=== PATIENT | female | born 1930 | race Caucasian/White ===

== ENCOUNTER 2019-09-15 16:08 | Inpatient (IN) ==
[2019-09-15 19:16] LABS: Basophils # 0.1 10*3/uL (0.0-0.2); Basophils % 0.5 % (0.0-0.8); Eosinophils # 0.3 10*3/uL (0.0-0.87); Hemoglobin 9.7 GM/DL (12.0-16.0); Immature Granulocytes % 0.5 %; Immature Granulocytes Absolute 0.05 #; Lymphocytes # 1.6 10*3/uL (1.4-4.0); Lymphocytes % 14.8 % (21.3-54.2); Mean Corpuscular HGB Conc 30.3 GM/DL (32-36); Mean Corpuscular Volume 87.2 FL (87-102); Mean Platelet Volume 9.8 FL (9.6-12.0); Monocytes % 6.2 % (1.7-12.7); Platelet Count 317 T/CUMM (130-400); Red Blood Count 3.67 MC/CUMM (3.8-5.5); Red Cell Distribution Width 15.8 % (9.3-17.3); White Blood Count 10.6 T/CUMM (4-12)
[2019-09-15] MEDS ORDERED: DEXTROSE 50% 25 GM/50 ML VIAL IV PRN (19:19)
[2019-09-15] MEDS ORDERED: GLUCAGON 1 MG VIAL IM PRN ×2 (19:19→19:20)
[2019-09-15] MEDS ORDERED: DEXTROSE 10% 250 ML BAG IV PRN (19:20)
[2019-09-15] MEDS ORDERED: HYDROmorphone 2 MG/1 ML VIAL IV PRN (19:35)
[2019-09-15 19:42] LABS: Albumin 2.6 G/DL (3.4-5.0); Bilirubin,Total 1.4 MG/DL (0.2-1.0); Calcium 9.1 MG/DL (8.5-10.1); Osmolality,Calculated 281.2 MOS/KG (273-304); Total Protein 7.5 G/DL (6.4-8.3)
[2019-09-15] MEDS: INSULIN REGULAR 100 UNIT/ML SUBCUT SCH (20:31)
[2019-09-15] MEDS: PREGABALIN 75 MG CAPSULE PO SCH (20:45)
[2019-09-15] MEDS: SIMVASTATIN 20 MG TABLET PO SCH (20:45)
[2019-09-15] MEDS: rOPINIRole 1 MG TABLET PO SCH (20:45)
[2019-09-15] MEDS: DULoxetine 30 MG CAPSULE PO SCH (20:45)
[2019-09-16] MEDS ORDERED: fentaNYL 100 MCG/2 ML VIAL ONE (06:51)
[2019-09-16] MEDS ORDERED: LIDOCAINE 2% 5 ML VIAL ONE ×2 (06:51→10:59)
[2019-09-16] MEDS ORDERED: DEXAMETHASONE 4 MG/1 ML VIAL ONE ×2 (06:51→10:59)
[2019-09-16] MEDS ORDERED: BUPIVACAINE MPF 0.5% /EPI 30 ML VIAL ONE (06:51)
[2019-09-16 06:54] LABS: Basophils # 0.1 10*3/uL (0.0-0.2); Basophils % 0.5 % (0.0-0.8); Eosinophils # 0.1 10*3/uL (0.0-0.87); Eosinophils % 0.6 % (0.00-10.9); Hematocrit 30.3 VOL% (35.7-47.0); Hemoglobin 9.4 GM/DL (12.0-16.0); Immature Granulocytes % 0.7 %; Immature Granulocytes Absolute 0.09 #; Lymphocytes # 1.4 10*3/uL (1.4-4.0); Lymphocytes % 10.9 % (21.3-54.2); Mean Corpuscular Volume 85.8 FL (87-102); Mean Platelet Volume 9.4 FL (9.6-12.0); Monocytes % 5.3 % (1.7-12.7); NRBC # 0.03 10*3/uL; Platelet Count 344 T/CUMM (130-400); Red Blood Count 3.53 MC/CUMM (3.8-5.5); Red Cell Distribution Width 16.1 % (9.3-17.3); White Blood Count 12.5 T/CUMM (4-12)
[2019-09-16 07:08] LABS: Calcium 8.5 MG/DL (8.5-10.1); Osmolality,Calculated 283.7 MOS/KG (273-304)
[2019-09-16] MEDS ORDERED: ceFAZolin 1,000 MG in SYRINGE 1 EACH IV ONE (07:14)
[2019-09-16] MEDS: INSULIN REGULAR 100 UNIT/ML SUBCUT SCH ×4 (07:51→21:48)
[2019-09-16] MEDS: carvediloL 3.125 MG TABLET PO SCH (08:28)
[2019-09-16] MEDS: hydroCHLOROthiazide 12.5 MG CAPSULE PO SCH (08:29)
[2019-09-16] MEDS: LOSARTAN 50 MG TABLET PO SCH (08:29)
[2019-09-16] MEDS ORDERED: LACTATED RINGERS 1,000 ML IV SCH (09:00)
[2019-09-16] MEDS ORDERED: CALCIUM CHLORIDE 1,000 MG/10 ML VIAL IV ONE (09:52)
[2019-09-16] MEDS ORDERED: ALBUMIN 5% 12.5 GM/250 ML VIAL IV ONE (09:53)
[2019-09-16] MEDS ORDERED: FUROSEMIDE 20 MG/2 ML VIAL ONE (09:53)
[2019-09-16] MEDS ORDERED: LACTULOSE 20 GM/30 ML UDCUP PO PRN (10:33)
[2019-09-16] MEDS ORDERED: ONDANSETRON 4 MG/2 ML VIAL IV PRN (10:33)
[2019-09-16] MEDS ORDERED: ACETAMINOPHEN 325 MG TABLET PO PRN (10:33)
[2019-09-16] MEDS ORDERED: diphenhydrAMINE CAP 25 MG CAPSULE PO PRN (10:33)
[2019-09-16] MEDS ORDERED: MORPHINE 4 MG/1 ML VIAL IV PRN ×2 (10:33→10:47)
[2019-09-16] MEDS ORDERED: BISACODYL 10 MG SUPP RECTAL PRN (10:33)
[2019-09-16] MEDS ORDERED: PROMETHAZINE 25 MG/1 ML VIAL IM PRN (10:33)
[2019-09-16] MEDS ORDERED: GLUCAGON 1 MG VIAL IM PRN (10:36)
[2019-09-16] MEDS ORDERED: DEXTROSE 10% 250 ML BAG IV PRN (10:36)
[2019-09-16] MEDS ORDERED: ROCURONIUM 100 MG/10 ML VIAL IV ONE (10:59)
[2019-09-16] MEDS ORDERED: NEOSTIGMINE 10 MG/10 ML VIAL ONE (10:59)
[2019-09-16] MEDS ORDERED: SUCCINYLCHOLINE 200 MG/10 ML VIAL ONE (10:59)
[2019-09-16] MEDS ORDERED: ONDANSETRON 4 MG/2 ML VIAL ONE (10:59)
[2019-09-16] MEDS ORDERED: GLYCOPYRROLATE 0.4 MG/2 ML VIAL ONE (10:59)
[2019-09-16] MEDS ORDERED: LACTATED RINGERS 1,000 ML IV ONE (10:59)
[2019-09-16] MEDS ORDERED: PHENYLEPHRINE 1 MG/10 ML SYRINGE IV ONE (10:59)
[2019-09-16] MEDS ORDERED: propofoL 200 MG/20 ML VIAL IV ONE (10:59)
[2019-09-16] MEDS: ceFAZolin 1,000 MG in SYRINGE 1 EACH IV SCH ×2 (13:38→21:49)
[2019-09-16] MEDS: PREGABALIN 75 MG CAPSULE PO SCH (21:46)
[2019-09-16] MEDS: SIMVASTATIN 20 MG TABLET PO SCH (21:46)
[2019-09-16] MEDS: DULoxetine 30 MG CAPSULE PO SCH (21:46)
[2019-09-16] MEDS: rOPINIRole 1 MG TABLET PO SCH (21:46)
[2019-09-17] MEDS: FONDAPARINUX 2.5 MG/0.5 ML SYRINGE SUBCUT SCH (06:03)
[2019-09-17] MEDS: ceFAZolin 1,000 MG in SYRINGE 1 EACH IV SCH (06:04)
[2019-09-17 06:23] LABS: Basophils % 0.1 % (0.0-0.8); Hematocrit 25.9 VOL% (35.7-47.0); Hemoglobin 7.8 GM/DL (12.0-16.0); Immature Granulocytes % 1.2 %; Lymphocytes # 1.2 10*3/uL (1.4-4.0); Lymphocytes % 7.1 % (21.3-54.2); Mean Corpuscular HGB Conc 30.1 GM/DL (32-36); Mean Corpuscular Volume 88.1 FL (87-102); Mean Platelet Volume 9.7 FL (9.6-12.0); Monocytes % 4.4 % (1.7-12.7); NRBC # 0.02 10*3/uL; Neutrophils % 87.2 % (38.7-73.9); Platelet Count 292 T/CUMM (130-400); Red Blood Count 2.94 MC/CUMM (3.8-5.5); Red Cell Distribution Width 15.8 % (9.3-17.3); White Blood Count 16.7 T/CUMM (4-12)
[2019-09-17 07:16] LABS: Calcium 8.5 MG/DL (8.5-10.1); Osmolality,Calculated 287.4 MOS/KG (273-304)
[2019-09-17] MEDS: INSULIN REGULAR 100 UNIT/ML SUBCUT SCH ×4 (07:23→21:02)
[2019-09-17] MEDS: GLIMEPIRIDE 2 MG TABLET PO SCH (09:20)
[2019-09-17] MEDS: hydroCHLOROthiazide 12.5 MG CAPSULE PO SCH (09:21)
[2019-09-17] MEDS: LOSARTAN 50 MG TABLET PO SCH (09:21)
[2019-09-17] MEDS: carvediloL 3.125 MG TABLET PO SCH (09:22)
[2019-09-17] MEDS: ASPIRIN EC 81 MG TABLET PO SCH (09:22)
[2019-09-17 10:43] LABS: Hematocrit 25.9 VOL% (35.7-47.0); Hemoglobin 8.2 GM/DL (12.0-16.0)
[2019-09-17] MEDS: SODIUM CHLORIDE 0.9% 1,000 ML IV SCH ×2 (11:28→23:36)
[2019-09-17 12:07] LABS: Apearance,Urine Slightly Hazy (Clear); Bacteria,Urine Occasional /HPF (Few); Bilirubin,Urine Negative (Negative); Blood, Urine Moderate mg/dL (Negative); Glucose,Urine (UA) Negative (Negative); Hyaline Casts,Urine 7 /LPF (0-3); Ketones,Urine Negative (Negative); Mucus,Urine Occasional /LPF (Occasional); Nitrite,Urine Negative (Negative); Protein,Urine Negative; RBC,Urine 85 /HPF (0-4); Squamous Epithelial Cell,Urine Occasional /HPF (0-10); Urine Color Yellow (Yellow); Urine Specific Gravity 1.014 (1.001-1.035); Urine Urobilinogen < 2.0 EU/DL (0.2-1.0); WBC,Urine 8 /HPF (0-6)
[2019-09-17] MEDS: DULoxetine 30 MG CAPSULE PO SCH (21:02)
[2019-09-17] MEDS: rOPINIRole 1 MG TABLET PO SCH (21:02)
[2019-09-17] MEDS: PREGABALIN 75 MG CAPSULE PO SCH (21:02)
[2019-09-17] MEDS: SIMVASTATIN 20 MG TABLET PO SCH (21:02)
[2019-09-18 04:49] LABS: Basophils % 0.2 % (0.0-0.8); Eosinophils # 0.1 10*3/uL (0.0-0.87); Eosinophils % 0.4 % (0.00-10.9); Hematocrit 26.6 VOL% (35.7-47.0); Hemoglobin 7.9 GM/DL (12.0-16.0); Immature Granulocytes % 2.5 %; Immature Granulocytes Absolute 0.51 #; Lymphocytes # 2.5 10*3/uL (1.4-4.0); Lymphocytes % 12.3 % (21.3-54.2); Mean Corpuscular HGB Conc 29.7 GM/DL (32-36); Mean Corpuscular Volume 89.3 FL (87-102); Mean Platelet Volume 9.3 FL (9.6-12.0); Monocytes % 6.8 % (1.7-12.7); NRBC # 0.12 10*3/uL; Neutrophils % 77.8 % (38.7-73.9); Platelet Count 329 T/CUMM (130-400); Red Blood Count 2.98 MC/CUMM (3.8-5.5); White Blood Count 20.1 T/CUMM (4-12)
[2019-09-18] MEDS: FONDAPARINUX 2.5 MG/0.5 ML SYRINGE SUBCUT SCH (05:57)
[2019-09-18] MEDS: INSULIN REGULAR 100 UNIT/ML SUBCUT SCH ×4 (07:37→21:06)
[2019-09-18 08:51] LABS: Calcium 8.2 MG/DL (8.5-10.1); Osmolality,Calculated 284.7 MOS/KG (273-304)
[2019-09-18] MEDS: carvediloL 3.125 MG TABLET PO SCH (09:40)
[2019-09-18] MEDS: MAGNESIUM HYDROXIDE SUSP 30 ML UDCUP PO PRN (09:40)
[2019-09-18] MEDS: hydroCHLOROthiazide 12.5 MG CAPSULE PO SCH (09:40)
[2019-09-18] MEDS: GLIMEPIRIDE 2 MG TABLET PO SCH (09:40)
[2019-09-18] MEDS: LOSARTAN 50 MG TABLET PO SCH (09:40)
[2019-09-18] MEDS: ASPIRIN EC 81 MG TABLET PO SCH (09:40)
[2019-09-18] MEDS: cefTRIAXone 1,000 MG in SYRINGE 1 EACH IV SCH (09:45)
[2019-09-18 11:20] LABS: Hypochromasia 2+; Lymphocytes 12 % (20-55); Nucleated Red Blood Cells 1 (0-5); Segmented Neutrophils 81 % (50-85); Total Cells Counted 100
[2019-09-18 11:21] LABS: Microcytosis 2+; Ovalocytes Few; Platelet Estimate Normal; Polychromasia Slight; Tear Drop Cells Slight
[2019-09-18] MEDS: SODIUM CHLORIDE 0.9% 1,000 ML IV SCH (13:22)
[2019-09-18] MEDS: PREGABALIN 75 MG CAPSULE PO SCH (21:04)
[2019-09-18] MEDS: SIMVASTATIN 20 MG TABLET PO SCH (21:04)
[2019-09-18] MEDS: DULoxetine 30 MG CAPSULE PO SCH (21:04)
[2019-09-18] MEDS: rOPINIRole 1 MG TABLET PO SCH (21:04)
[2019-09-19] MEDS: SODIUM CHLORIDE 0.9% 1,000 ML IV SCH ×2 (02:13→15:54)
[2019-09-19 05:45] LABS: Basophils # 0.1 10*3/uL (0.0-0.2); Basophils % 0.5 % (0.0-0.8); Eosinophils # 0.6 10*3/uL (0.0-0.87); Eosinophils % 4.7 % (0.00-10.9); Hematocrit 24.6 VOL% (35.7-47.0); Hemoglobin 7.4 GM/DL (12.0-16.0); Immature Granulocytes Absolute 0.39 #; Lymphocytes # 2.1 10*3/uL (1.4-4.0); Lymphocytes % 15.9 % (21.3-54.2); Mean Corpuscular HGB Conc 30.1 GM/DL (32-36); Mean Corpuscular Volume 89.5 FL (87-102); Mean Platelet Volume 9.7 FL (9.6-12.0); Monocytes % 7.4 % (1.7-12.7); NRBC # 0.12 10*3/uL; Neutrophils % 68.5 % (38.7-73.9); Platelet Count 322 T/CUMM (130-400); Red Blood Count 2.75 MC/CUMM (3.8-5.5); Red Cell Distribution Width 16.4 % (9.3-17.3); White Blood Count 13.1 T/CUMM (4-12)
[2019-09-19] MEDS: MAGNESIUM HYDROXIDE SUSP 30 ML UDCUP PO PRN (05:46)
[2019-09-19] MEDS: FONDAPARINUX 2.5 MG/0.5 ML SYRINGE SUBCUT SCH (05:46)
[2019-09-19 05:57] LABS: Calcium 8.5 MG/DL (8.5-10.1); Osmolality,Calculated 287.1 MOS/KG (273-304)
[2019-09-19] MEDS: INSULIN REGULAR 100 UNIT/ML SUBCUT SCH ×4 (08:02→21:56)
[2019-09-19] MEDS ORDERED: SODIUM CHLORIDE 0.9% 1,000 ML IV PRN (09:07)
[2019-09-19] MEDS: ASPIRIN EC 81 MG TABLET PO SCH (09:54)
[2019-09-19] MEDS: GLIMEPIRIDE 2 MG TABLET PO SCH (09:54)
[2019-09-19] MEDS: carvediloL 3.125 MG TABLET PO SCH (09:54)
[2019-09-19] MEDS: cefTRIAXone 1,000 MG in SYRINGE 1 EACH IV SCH (09:55)
[2019-09-19] MEDS: rOPINIRole 1 MG TABLET PO SCH (20:53)
[2019-09-19] MEDS: SIMVASTATIN 20 MG TABLET PO SCH (20:53)
[2019-09-19] MEDS: DULoxetine 30 MG CAPSULE PO SCH (20:54)
[2019-09-19] MEDS: PREGABALIN 75 MG CAPSULE PO SCH (20:54)
[2019-09-20] MEDS: MAGNESIUM HYDROXIDE SUSP 30 ML UDCUP PO PRN (04:44)
[2019-09-20 05:49] LABS: Hematocrit 33.4 VOL% (35.7-47.0); Hemoglobin 10.3 GM/DL (12.0-16.0)
[2019-09-20 06:19] LABS: Calcium 8.8 MG/DL (8.5-10.1); Osmolality,Calculated 283.8 MOS/KG (273-304)
[2019-09-20 08:25] VITALS: BP 192/63
[2019-09-20] MEDS: INSULIN REGULAR 100 UNIT/ML SUBCUT SCH (08:46)
[2019-09-20] MEDS ORDERED: amLODIPine 5 MG TABLET PO SCH (10:00)
[2019-09-20] MEDS: carvediloL 3.125 MG TABLET PO SCH (10:21)
[2019-09-20] MEDS: GLIMEPIRIDE 2 MG TABLET PO SCH (10:21)
[2019-09-20] MEDS: ASPIRIN EC 81 MG TABLET PO SCH (10:21)
[2019-09-20] MEDS: cefTRIAXone 1,000 MG in SYRINGE 1 EACH IV SCH (10:52)
== END 2019-09-20 11:45 | DRG 481 ==
LOC: N.3E → SUATTDRO 18:25
PROVIDERS: ADMIT Internal Medicine; ATTEND Internal Medicine